=== PATIENT | female | born 1975 | race Two or more races ===

== ENCOUNTER 2016-07-23 04:03 | Inpatient (IN) | payer MEDICARE, OTHER ==
[~2016-07-23] VITALS: Ht 157.5 cm; Wt 98.9 kg
--- NOTE | 2016-07-23 04:05 | NUR ---
To bed 4 a 41 yo female bibra with c/of "weakness all day and slurred speech since 99". Noted patient with uneven smile, lip drooping on the left side. Patient is aaox4, able to move all extremities. No s/s of acute distress. Respiration even and unlabored. Placed on cardiac cath tech. Skin warm and dry to touch. Dr Riddle at bedside for eval.
[2016-07-23] MEDS ORDERED: IV NS 0.9% 1,000 ML ONE ×3 (04:22→05:30)
[2016-07-23] MEDS ORDERED: IV SET PRIMARY 1 EA INFUS.SET MC ONE ×3 (04:22→05:30)
[2016-07-23] MEDS ORDERED: IV NS 0.9% 1,000 ML BAG IV ONE ×2 (04:30→05:30)
--- NOTE | 2016-07-23 04:30 | NUR ---
lab at bedside to draw blood
[2016-07-23 04:48] LABS: BASOPHILS # (AUTO) 0.1 /CMM (0.0-0.2); BASOPHILS % (AUTO) 0.6 % (0.0-2.0); EOSINOPHILS % (AUTO) 0.4 % (0.0-6.0); HEMATOCRIT 40 % (33-45); HEMOGLOBIN 13.3 g/dL (11.5-14.8); LYMPHOCYTES # (AUTO) 0.7 /CMM (0.8-4.8); LYMPHOCYTES % (AUTO) 8.5 % (20.0-44.0); MEAN CORPUSCULAR HEMOGLOBIN 30 PG (26.0-33.0); MEAN CORPUSCULAR HGB CONC 33 g/dl (31.0-36.0); MEAN CORPUSCULAR VOLUME 89 fL (82-100); MONOCYTES # (AUTO) 0.4 /CMM (0.1-1.30); NEUTROPHILS # (AUTO) 7.6 /CMM (1.8-8.9); NEUTROPHILS % (AUTO) 86.5 % (43.0-81.0); PLATELET COUNT (AUTO) 273 /CMM (150-450); RDW COEFFICIENT OF VARIATION 15.1 (11.5-15.0); RED BLOOD CELL COUNT(AUTO) 4.45 MIL/uL (4.0-5.2); WHITE BLOOD COUNT (AUTO) 8.8 K/uL (4.3-11.0)
--- NOTE | 2016-07-23 04:49 | NUR ---
patient to ct.
[2016-07-23 04:59] LABS: CALCIUM, SERUM 9.1 mg/dL (8.5-10.1); CARBON DIOXIDE 23 mmol/L (21-32); CHLORIDE 106 mmol/L (98-107); CREATININE 1.1 mg/dL (0.6-1.3); GFR 54 mL/min (>60); GLUCOSE 115 mg/dL (74-106); POTASSIUM 3.9 mmol/L (3.5-5.1); SODIUM SERUM 140 mmol/L (136-145); UREA NITROGEN, BLOOD 9 mg/dL (7-18)
[2016-07-23 05:07] LABS: TROPONIN I < 0.017 ng/mL (0.00-0.056)
[2016-07-23 05:13] LABS: PROTHROMBIN TIME 10.7 SECS (9.5-12.7)
[2016-07-23] MEDS ORDERED: LORAZEPAM 1 MG TABLET PO ONE (05:30)
[2016-07-23] MEDS ORDERED: MIDAZOLAM HCL 2 MG/2ML VIAL IV ONE (05:30)
[2016-07-23] MEDS ORDERED: LORAZEPAM 1 MG TABLET ONE (05:30)
--- NOTE | 2016-07-23 05:39 | NUR ---
Patient with hr at 120's. Dr Riddle is aware, received new orders, will carry out.
--- NOTE | 2016-07-23 05:41 | NUR ---
urine sample collected, called lab for pick up man.
[2016-07-23 05:51] LABS: APPEARANCE,URINE CLEAR (CLEAR); BILIRUBIN,URINE NEGATIVE (NEGATIVE); BLOOD, URINE NEGATIVE Ery/uL (NEGATIVE); KETONES,URINE NEGATIVE (NEGATIVE); LEUKOCYTE ESTERASE ,URINE TRACE (NEGATIVE); NITRITE, URINE NEGATIVE (NEGATIVE); PROTEIN,URINE NEGATIVE (NEGATIVE); UGLUCOSE NEGATIVE (NEGATIVE); UROBILINOGEN,URINE 0.2 EU/dL (0.2)
[2016-07-23 05:56] LABS: COLOR,URINE STRAW (YELLOW)
[2016-07-23 05:59] LABS: PREGNANCY TEST URINE QUAL NEGATIVE (NEGATIVE)
[2016-07-23 06:01] LABS: ADD URINE CULTURE NO; BACTERIA,URINE None seen /HPF (None Seen); MUCUS,URINE Rare /LPF (None Seen); RBC,URINE NONE SEEN /HPF (0-2); SQUAMOUS EPITHELIAL CELL,UR Few /HPF (None Seen); WBC,URINE 0-2 /HPF (0-3)
--- NOTE | 2016-07-23 06:44 | NUR ---
Dr Dave at bedside.
--- NOTE | 2016-07-23 07:30 | NUR ---
PT AAOX3. NAD NOTED. VSS. FAMILY MEMBERS AT BS.
--- NOTE | 2016-07-23 08:17 | NUR ---
panel on-call paged
[2016-07-23] MEDS ORDERED: DANA200C PO (08:29)
[2016-07-23] MEDS ORDERED: [UNRECOGNIZED DRUG - OTHER] IV (08:29)
[2016-07-23] MEDS ORDERED: DIPH25CA83 PO (08:29)
[2016-07-23] MEDS ORDERED: LEVO88TA5 PO (08:29)
--- NOTE | 2016-07-23 08:36 | NUR ---
REPORT GIVEN TO KAMILLE JOHNSON FOR [place] TELE 120-1
[2016-07-23 09:00] VITALS: BP 151/106
--- NOTE | 2016-07-23 09:00 | NUR ---
RN ADMITTING NOTES: REC'D PT FROM ER STAFF VIA GURNEY ACCOMPANIED BY RELATIVES, NOT IN ANY DISTRESS, A&O X3-4, DENIES ANY CHEST PAIN, C/O GENERALIZED WEAKNESS DUE TO CURRENT CONDITION. ON TELEMONITOR, ST W/ HR 122. PT HAS LFA G20, SL, FLUSHED, PATENT, C/D/I, NO SIGNS OF INFECTION/ INFILTRATION NOTED. HAS L CW PORT-A-CATH, INTACT. PROVIDED COMFORT & SAFETY MEASURES. CL PLACED W/IN REACHED. BED KEPT LOW & IN LOCKED POSITION. NEEDS ATTENDED. WILL CONTINUE TO MONITOR.
[2016-07-23] MEDS ORDERED: IV NS 0.9% 1,000 ML IV PRN (09:19)
[2016-07-23] MEDS ORDERED: MAG HYDROX/AL HYDROX/SIMETH 30 ML UDC PO PRN (09:30)
[2016-07-23] MEDS ORDERED: MAGNESIUM HYDROXIDE 30 ML UDC PO PRN (09:30)
[2016-07-23] MEDS ORDERED: ONDANSETRON HCL/PF 4 MG/2 ML VIAL IVP PRN (09:30)
[2016-07-23] MEDS ORDERED: ZOLPIDEM TARTRATE 5 MG TABLET PO PRN (09:30)
[2016-07-23] MEDS ORDERED: Z GUARD REMEDY 2 OZ OINT TP PRN (09:30)
[2016-07-23] MEDS ORDERED: IV SET PRIMARY PUMP SET 1 EA INFUS.SET MC ONE (10:28)
[2016-07-23] MEDS: IV NS 0.9% 1,000 ML IV PRN ×2 (10:38→20:12)
[2016-07-23] MEDS: ACETAMINOPHEN 325 MG TABLET PO PRN (11:49)
[2016-07-23 12:00] VITALS: BP 144/101
[2016-07-23] MEDS ORDERED: LORAZEPAM INJ 2 MG/ML VIAL IV ONE (14:00)
[2016-07-23] MEDS ORDERED: GADOVERSETAMIDE 2.5 MMOL/5 ML VIAL IJ ONE (15:01)
[2016-07-23] MEDS ORDERED: GADOVERSETAMIDE 5 MMOL/10 ML VIAL IJ ONE (15:01)
[2016-07-23 16:00] VITALS: BP 134/68
[2016-07-23] MEDS ORDERED: C1 ESTERASE INHIBITOR IV PRN (17:00)
[2016-07-23 17:52] LABS: CANNABINOID, URINE NEGATIVE (NEGATIVE); PHENCYCLIDINE SCREEN,URINE NEGATIVE (NEGATIVE)
--- NOTE | 2016-07-23 18:42 | NUR ---
RN CLOSING NOTES: NO ACUTE CHANGES NOTED W/IN SHIFT, A&O X4, NOT IN ANY DISTRESS, DENIES CHEST PAIN. PT LFA G20 W/ NS 1L X 125 CC/HR, INFUSING WELL, C/D/I, NO SIGNS OF INFECTION/ INFILTRATION. LCW PORT-A-CATH INTACT. COMFORT MEASURES PROVIDED. CL PLACED W/IN REACHED. NEEDS ATTENDED. WILL ENDORSE TO PM RN FOR [place].
[2016-07-23 20:00] VITALS: BP 123/92
[2016-07-24] VITALS: BP_SYST 140; BP_SYST 148; BP_DIAS 102; BP_DIAS 90
--- NOTE | 2016-07-24 02:43 | NUR ---
pt comfortably sleeping, no distress, iv fluid ongoing. v/s stable. ongoing monitoring...
[2016-07-24 04:00] VITALS: BP 117/85
[2016-07-24] MEDS: IV NS 0.9% 1,000 ML IV PRN (04:23)
[2016-07-24 06:56] LABS: BASOPHILS % (AUTO) 0.4 % (0.0-2.0); EOSINOPHILS # (AUTO) 0.1 /CMM (0.0-0.7); EOSINOPHILS % (AUTO) 1.1 % (0.0-6.0); HEMATOCRIT 39 % (33-45); HEMOGLOBIN 13.1 g/dL (11.5-14.8); LYMPHOCYTES # (AUTO) 1.7 /CMM (0.8-4.8); LYMPHOCYTES % (AUTO) 22.4 % (20.0-44.0); MEAN CORPUSCULAR HEMOGLOBIN 30 PG (26.0-33.0); MEAN CORPUSCULAR HGB CONC 33 g/dl (31.0-36.0); MEAN CORPUSCULAR VOLUME 91 fL (82-100); MONOCYTES # (AUTO) 0.6 /CMM (0.1-1.30); MONOCYTES % (AUTO) 7.8 % (2.0-12.0); NEUTROPHILS # (AUTO) 5.1 /CMM (1.8-8.9); NEUTROPHILS % (AUTO) 68.3 % (43.0-81.0); PLATELET COUNT (AUTO) 264 /CMM (150-450); RDW COEFFICIENT OF VARIATION 15.2 (11.5-15.0); RED BLOOD CELL COUNT(AUTO) 4.35 MIL/uL (4.0-5.2); WHITE BLOOD COUNT (AUTO) 7.5 K/uL (4.3-11.0)
[2016-07-24] MEDS ORDERED: LEVOTHYROXINE SODIUM 88 MCG TABLET PO SCH (07:30)
--- NOTE | 2016-07-24 07:30 | NUR ---
RN NOTES RECEIVED PATIENT IN BED ALERT, AWAKE, ORIENTED X3 WITH BREATHING NORMAL, EVEN AND UNLABORED. NO SOB NOTED. NO ACUTE DISTRESS NOTED. ON ROOM AIR, SATURATING WELL. TELE MONITOR REVEALS ST, DK=[id number]. IV LFA 20G IS PATENT AND INTACT, RUNNING IVF PER ORDER. KEPT CLEAN, DRY AND COMFORTABLE. ALL NEEDS ATTENDED. SAFETY MEASURE OBSERVED. CALL LIGHT WITH IN REACH. WILL CONT TO MONITOR.
[2016-07-24 07:41] LABS: ALBUMIN 2.7 g/dL (3.4-5.0); BILIRUBIN,TOTAL 0.3 mg/dL (0.2-1.0); CALCIUM, SERUM 8.7 mg/dL (8.5-10.1); MAGNESIUM 1.8 mg/dL (1.8-2.4); POTASSIUM 4.3 mmol/L (3.5-5.1); TOTAL PROTEIN, SERUM 6.5 g/dL (6.4-8.2)
[2016-07-24] MEDS: ACETAMINOPHEN 325 MG TABLET PO PRN (07:44)
[2016-07-24 08:00] VITALS: BP 140/92
[2016-07-24 08:10] LABS: THYROID STIMULATING HORMONE 1.098 uIU/mL (0.358-3.74)
[2016-07-24] MEDS ORDERED: PANTOPRAZOLE 40 MG VIAL IV SCH (09:00)
--- NOTE | 2016-07-24 11:15 | NUR ---
RN NOTES PATIENT DISCHARGED IN STABLE CONDITION WITH BREATHING NORMAL, EVEN AND UNLABORED. NO SOB NOTED. NO ACUTE DISTRESS NOTED. DENIES ANY PAIN OR DISCOMFORT. IV HEPLOCK REMOVED. KEPT CLEAN, DRY AND COMFORTABLE. ALL NEEDS ATTENDED. PATIENT LEFT WITH YOLY (FATHER) IN STABLE CONDITION.
== END 2016-07-24 12:09 | disposition home or self-care (01) | DRG 91 ==
LOC: ER 04:05 → TELE1 08:39
PROVIDERS: ADMIT Family Medicine; ATTEND Family Medicine
DX: G92 Toxic encephalopathy (principal); E43 Unspecified severe protein-calorie malnutrition; T45.0X5A Adverse effect of antiallergic and antiemetic drugs, initial encounter; Y92.009 Unspecified place in unspecified non-institutional (private) residence as the place of occurrence of the external cause; E66.9 Obesity, unspecified; Z68.39 Body mass index [BMI] 39.0-39.9, adult; I10 Essential (primary) hypertension; D84.1 Defects in the complement system
CPT/HCPCS: 36415; 70450-TC; 70553-TC; 71010-TC; 80048-TC; 80053-TC; 80305; 81000-TC; 83735-TC; 84100-TC; 84425; 84443-TC; 84484-TC; 84703-TC; 85025-TC; 85730-TC; 87081-TC; 95819-TC; A4606; A9579; C9113; J2060; J7030; Z7610